=== PATIENT | male | born 1990 | race Caucasian/White ===

== ENCOUNTER 2017-05-29 09:06 | Emergency (ER) | payer OTHER ==
[~2017-05-29] VITALS: Ht 182.9 cm; Wt 116.3 kg
[2017-05-29 09:12] VITALS: BP 150/91
== END 2017-05-29 10:02 | disposition home or self-care (01) ==
LOC: ED 09:44
DX: L73.9 Follicular disorder, unspecified (principal)
CPT/HCPCS: 99283

== ENCOUNTER 2019-09-01 09:13 | Emergency (ER) | payer SELFPAY ==
[~2019-09-01] VITALS: Ht 180.3 cm; Wt 118.3 kg
--- NOTE | 2019-09-01 09:57 | NUR ---
PT C/O LEFT FLANK PAIN AND PAINFUL URINATION. SUBJECTIVE FEVER, DRY COUGH
--- NOTE | 2019-09-01 10:06 | NUR ---
DR FONTENOT AT BEDSIDE, PT ASSESSMENT AND POC DISCUSSED, QUESTIONS ANSWERED. URINE COLLECTED AND SENT TO LAB. VSS, CALL LIGHT W/I REACH
[2019-09-01 10:34] LABS: CULTURE INDICATED? YES; MICROSCOPIC INDICATED
[2019-09-01] MEDS ORDERED: KETOROLAC 30 MG/1 ML IM ONE (11:00)
[2019-09-01] MEDS ORDERED: KETOROLAC 60 MG/2 ML ONE (11:06)
--- NOTE | 2019-09-01 11:11 | NUR ---
PT MED NOTED. LAB TESTS RESULTED AND CHART UP FOR RECHECK.
[2019-09-01 12:50] VITALS: BP 140/89
--- NOTE | 2019-09-01 12:56 | NUR ---
Patient/Caregiver given discharge instructions and they have confirmed that they understand the instructions. Patient ambulatory with steady gait.
== END 2019-09-01 12:57 | disposition home or self-care (01) ==
LOC: ED 10:24
DX: N30.00 Acute cystitis without hematuria (principal); B34.9 Viral infection, unspecified; J45.909 Unspecified asthma, uncomplicated
CPT/HCPCS: 81001; 87086; 96372; 99283; J1885

== ENCOUNTER 2019-09-06 07:25 | Emergency (ER) | payer SELFPAY ==
[~2019-09-06] VITALS: Ht 180.3 cm; Wt 121.0 kg
[2019-09-06] MEDS ORDERED: ONDANSETRON 2MG/ML, 2ML ONE (07:59)
[2019-09-06] MEDS ORDERED: PANTOPRAZOLE 40 MG IV ONE (07:59)
[2019-09-06] MEDS ORDERED: SODIUM CHLORIDE FLUSH 10ML SYR IVF ONE (08:00)
[2019-09-06] MEDS ORDERED: PANTOPRAZOLE 40 MG IV IVPush ONE (08:00)
[2019-09-06] MEDS ORDERED: ONDANSETRON 2MG/ML, 2ML IVPush ONE (08:00)
[2019-09-06 08:10] LABS: BASOPHILS # (AUTO) 0.03 x10^3/uL (0-0.1); BASOPHILS % (AUTO) 0 % (0-1); EOSINOPHILS # (AUTO) 0.72 x10^3/uL (0-0.4); EOSINOPHILS % (AUTO) 7 % (1-7); LYMPHOCYTES # (AUTO) 1.42 x10^3/uL (1-3.4); LYMPHOCYTES % (AUTO) 15 % (22-44); MD NO; MEAN CORPUSCULAR HEMOGLOBIN 31.3 pg (27.5-34.5); MEAN CORPUSCULAR HGB CONC 33.7 g/dL (33.2-36.2); MEAN CORPUSCULAR VOLUME 92.7 fL (81-97); MEAN PLATELET VOLUME 7.7 fL (7.4-10.4); MONOCYTES % (AUTO) 4 % (2-9); NEUTROPHILS # (AUTO) 7.05 x10^3/uL (1.8-6.8); NEUTROPHILS % (AUTO) 73 % (42-75); PLATELET COUNT 312 x10^3/uL (130-400); RED BLOOD COUNT 5.51 x10^6/uL (4.38-5.82); RED CELL DISTRIBUTION WIDTH 13.3 % (9.4-14.8)
[2019-09-06 08:19] LABS: INTERNATIONAL NORMALIZED RATIO 1.01 (0.93-1.1); PROTHROMBIN TIME 10.7 Seconds (9.6-11.5)
[2019-09-06 08:22] LABS: ALANINE AMINOTRANSFERASE 30 U/L (12-78); ALBUMIN 3.6 g/dL (3.4-5.0); ANION GAP 6 mmol/L (5-15); CALCIUM 8.7 mg/dL (8.5-10.1); CHLORIDE 113 mmol/L (98-107); CREATININE 0.95 mg/dL (0.7-1.3)
[2019-09-06 08:25] LABS: ALKALINE PHOSPHATASE 90 U/L (45-117); BILIRUBIN,TOTAL 0.4 mg/dL (0.2-1.0); TOTAL PROTEIN 7.3 g/dL (6.4-8.2)
--- NOTE | 2019-09-06 08:58 | NUR ---
BEDSIDE REPORT AND CARE FROM LAURA RN. CARE ASSUMED. DR. BOBBY AT BEDSIDE FOR RECHECK DISCUSSSING RESULTS AND DISCHARGE POC, PT VERBALIZED UNDERSTANDING. VSS. AWAITING DISCHARGE PAPERS.
--- NOTE | 2019-09-06 09:20 | NUR ---
Samir Patel at bedside discussing test results with pt, continue awaiting chart from ERP
[2019-09-06 09:25] VITALS: BP 125/74
== END 2019-09-06 09:29 | disposition home or self-care (01) ==
LOC: ED 07:49
DX: K29.01 Acute gastritis with bleeding (principal)
CPT/HCPCS: 36415; 76700; 80053; 83690; 85025; 85610; 93005; 96374; 96375; 99285; C9113; J2405